=== PATIENT | male | born 1990 | race Caucasian/White ===

== ENCOUNTER → 2016-08-25 | Outpatient (CLI) | payer MEDICAID ==
--- NOTE | 2016-08-31 17:19 | CPEEG ---
[f rep st] ELECTROENCEPHALOGRAM DATE OF STUDY: 08/25/2016 DATE OF INTERPRETATION: 08/31/2016 INTERPRETATION: This 4-hour video EEG recording is normal. There were no potentially epileptogenic abnormalities present during the awake or sleep recordings. During the video EEG monitoring rachael nettles, the patient did not have any clinical events. REPORT: This 4-hour video EEG contains 10 Hz alpha to the posterior head regions. There was no abn ormal activation at rest, photic stimulation, or hyperventilation. The patient became drowsy and fe ll into sustained sleep during the study. There was no abnormal activation during drowsiness, sleep , or during times of arousal. The patient did not have any clinical events during the video EEG rec ording. /[id number]/MODL
== END ==
LOC: FCPNEURO 09:14
PROVIDERS: ATTEND Physician Assistant Medical
DX: R56.9 Unspecified convulsions (principal)

== ENCOUNTER → 2016-09-03 | Outpatient (CLI) | payer MEDICAID | LOC: FIMAGING 14:48 | PROVIDERS: ATTEND Physician Assistant Medical | DX: G40.909 Epilepsy, unspecified, not intractable, without status epilepticus (principal) ==

== ENCOUNTER 2016-11-01 14:38 | Emergency (ER) | payer MEDICAID ==
[2016-11-01 14:49] VITALS: TEMP 98.2
[2016-11-01] MEDS ORDERED: PROPARACAINE 0.5% 15 ML OPHT DROP OP ONE (15:16)
[2016-11-01] MEDS ORDERED: FLUORESCEIN SODIUM 1 MG STRIP OP ONE (15:16)
--- NOTE | 2016-11-01 15:46 | EDPHY ---
H & P Smoking Status: Former smoker Time Seen by Provider: 11/01/16 15:14 HPI/ROS: CHIEF COMPLAINT: Right eye complaint HISTORY OF PRESENT ILLNESS: 26-year-old male presents emergency department complaining of irritation to his right eye that started just prior to arrival. Patient reports he was driving in a car with his window open and felt something fly into his eye. Patient states he had tearing, itching and swelling immediately. Patient reports he flushed his eye though it continues to feel like there is a foreign body and is pruritic. He does not were contact lenses, tetanus is up-to-date. He denies pain in this eye, no blurred vision, no discharge. (Lucy Gannon) Physical Exam: Right eye Visual Acuity: Noted from Nurse's notes. Pupils: PERRLA, EOMI, no nystagmus, no trauma, no injection. Lids: small amount of edema upper and lower the Skin: No proptosis, no periorbital erythema or swelling, no vesicles Conjunctivae: mildly injected, not icteric, no discharge Cornea: Exam with slit lamp and fluoroscein shows no corneal abrasion Anterior chamber: Normal, no hyphema or hypopyon (Lucy Gannon) Constitutional: Initial Vital Signs Temperature (C) 36.8 C 11/01/16 14:47 Heart Rate 86 11/01/16 14:47 Respiratory Rate 17 11/01/16 14:47 Blood Pressure 112/75 11/01/16 14:47 O2 Sat (%) 98 11/01/16 14:47 O2 Delivery Mode Room Air Allergies/Adverse Reactions: Penicillins Allergy (Unknown, Verified 11/01/16 14:46) Sulfa (Sulfonamide Antibiotics) Allergy (Unknown, Verified 11/01/16 14:46) MUSHROOM Allergy (Unknown, Uncoded 03/31/10 13:28) Home Medications: Medication Instructions Recorded VIMPAT 11/01/16 MDM/Departure - MDM Medications Given: Discontinued Medications Fluorescein Sodium (Hdpyb-M-Uadbs) 1 mg OP EDNOW ONE Stop: 11/01/16 15:17 Last Admin: 11/01/16 15:47 Dose: 1 mg Proparacaine HCl (Alcaine 0.5%) 1 drops OP EDNOW ONE Stop: 11/01/16 15:17 Last Admin: 11/01/16 15:47 Dose: 1 drop ED Course/Re-evaluation: The patient was evaluated and managed by the Physician Curing Oven Attendant/ Nurse Practitioner. My co-signature indicates that I have reviewed this chart and I agree with the findings and plan of care as documented. I am the secondary supervising physician. (Ramona Elder) - Depart Disposition: Home, Routine, Self-Care Clinical Impression: Irritation of right eye Condition: Good Instructions: Eye Foreign Body (ED), Blurred Vision (ED) Additional Instructions: Use moisturizing drops to right eye as much as needed for comfort. Take 10 mg of Zyrtec daily for 3 days, use oprl-aox-boksexp ketotifen eye drops twice daily. Follow up with the can piler for symptoms that are not improving in the next day, worsening symptoms, any new questions or concerns. Return to the emergency department as needed. Referrals: Mya Gutierrez MD [Non Staff Provider (MD)] - As per Instructions ( Spray Gunner on-call)
[2016-11-01 16:32] VITALS: BP 123/77; PULSE 72; RESP 18; O2SAT 97
== END 2016-11-01 16:32 | disposition home or self-care (01) ==
DX: H57.8 Other specified disorders of eye and adnexa (principal); Z87.891 Personal history of nicotine dependence